=== PATIENT | female | born 1970 | race Caucasian/White ===

== ENCOUNTER 2020-09-15 13:26 | Outpatient (REF) | payer BC, SELFPAY ==
--- NOTE | 2020-09-15 13:31 | MM_ITS ---
EXAMINATION: MM DIAGNOSTIC DIGITAL BREAST TOMOSYNTHESIS, BILATERAL CLINICAL INFORMATION: Probable benign nodule central left breast. Due for yearly. No family history breast cancer. The lifetime risk of breast cancer based on the Tyrer-Cuzick Model is 11%. COMPARISON: Mammography: 09/11/2019, 03/09/2019, 09/06/2018 (BI-RADS 0). TECHNIQUE: Digital breast tomosynthesis is performed in both the craniocaudal and mediolateral oblique views along with computer-aided detection (CAD). Synthesized 2D images are generated from the tomosynthesis. FINDINGS: There are scattered areas of fibroglandular density (ACR BI-RADS breast composition Category b). There are no significant masses, abnormal calcifications, or other abnormalities. The nodule central left breast is decreased in size since 2018. Other nodularity inner left breast also decreased. There is no developing density. Scattered punctate calcifications inner left breast and anterior right breast are similar to prior studies. No significant changes. Results are provided to the patient at time of visit by the technologist. MM/MM tomosynthesis diagnostic BI IMPRESSION: 1. No mammographic evidence of malignancy. 2. Nodularity left breast decreased since 2018, now considered benign. ASSESSMENT: BI-RADS 2: Benign RECOMMENDATION: Routine annual mammography screening. This patient's information was entered into a reminder system with a target due date for their next mammogram.
== END 2020-09-15 13:27 | disposition home or self-care (01) ==
LOC: HO.MAMMO 13:26
PROVIDERS: PCP Internal Medicine; Visit Provider Internal Medicine
DX: R92.2 Inconclusive mammogram (principal)
CPT/HCPCS: 77062; 77066

== ENCOUNTER → 2021-01-28 13:37 | Outpatient (REF) | payer BC, SELFPAY ==
--- NOTE | 2021-01-28 14:00 | ECG_ITS ---
Hook-up date: 2021-01-28 13:59:00 Duration: 45:42:00 Test Indications: PREMATURE VENTRICULAR CONTRACTIO Medications: [id number] QRS complexes 2 Ventricular ectopics which represent <1 % of total QRS comp. 1 Supraventricular ectopics which represent <1 % of total QRS comp. * Paced QRS complexs which represent % of total QRS comp. VENTRICULAR ECTOPY 2 Isolated 0 Bigeminal Cycles 0 Couplets 0 Runs 0 Beats in Runs * Beats LONGEST at * BPM at :: -- * Beats FASTEST at * BPM at :: -- SUPRAVENTRICULAR ECTOPY 1 Isolated 0 Couplets 0 Runs 0 Beats in Runs * Beats LONGEST at * BPM at :: -- * Beats FASTEST at * BPM at :: -- HEART RATES 55 MIN at 03:18:13 2021-01-29 84 AVG 146 MAX at 14:04:35 2021-01-28 LONGEST RR 1.1040 secs at 03:18:10 2021-01-29 S-T LEVELS Channel 1 - 128 mm at 13:59:00 2021-01-28 - 128 mm at 13:59:00 2021-01-28 Channel 2 - 128 mm at 13:59:00 2021-01-28 - 128 mm at 13:59:00 2021-01-28 Channel 3 - 128 mm at 03:31:81 -- - 128 mm at 03:31:81 Underlying rhythm is sinus; Average ventricular rate 84/min; No significant ectopy, tachy or naina arrhythmias; Patient did not report any symptoms in the diary Referred By: Zabrina Munroe Overread By: ZABRINA MUNROE
== END ==
LOC: HO.CARD 13:37
PROVIDERS: Visit Provider Internal Medicine
DX: I49.3 Ventricular premature depolarization (principal)
CPT/HCPCS: 93225; 93226

== ENCOUNTER 2021-06-26 07:11 | Outpatient (REF) | payer BC, SELFPAY ==
[2021-06-26 07:47] LABS: MANUAL DIFF FLAG NO
[2021-06-26 07:51] LABS: Basophils Percent Auto 0.2 % (0-2); Eosinophils Absolute Auto 0.2 X10*3/uL (0.0-0.4); Eosinophils Percent Auto 2.7 % (0-4); Hematocrit 40.1 % (37-47); Hemoglobin 13.1 g/dl (12.0-16.0); Imm Gran Abs Auto 0.02 X10*3/uL (0.00-0.03); Imm Gran Pct Auto 0.2 % (0.0-0.4); Lymphocytes Percent Auto 36.1 % (20-40); Mean Corpuscular HGB Conc 32.7 g/dl (31.0-35.0); Mean Corpuscular Hemoglobin 28.4 pg (27.0-33.0); Mean Corpuscular Volume 86.8 fL (80-98); Mean Platelet Volume 9.3 fL (9.4-12.3); Monocytes Absolute Auto 0.7 X10*3/uL (0.1-1.2); Monocytes Percent Auto 7.8 % (2-11); Neutrophils Absolute Auto 4.4 X10*3/uL (2.0-8.3); Platelet Count 309 X10*3/uL (160-400); Red Blood Count 4.62 X10*6/uL (4.20-5.50); Red Cell Distribution Width 13.4 % (11.0-16.0); White Blood Count 8.3 X10*3/uL (4.8-10.8)
[2021-06-26 08:07] LABS: Anion Gap 10 (12-20); Blood Urea Nitrogen 10 mg/dL (9-16); Calcium 9.5 mg/dL (8.4-10.2); Carbon Dioxide 30 mmol/L (22-29); Chloride 104 mmol/L (96-108); Cholesterol 202 mg/dL; Estimated Glomerular Filt Rate > 60; Glucose Fasting 101 mg/dL (60-99); HDL Cholesterol 61 mg/dL; LDL Cholesterol Calculated 125 mg/dl; Potassium 4.4 mmol/L (3.3-5.1); Sodium 140 mmol/L (135-145); Triglycerides 82 mg/dL
[2021-06-26 08:29] LABS: TSH reflex Free T4 1.35 uIU/mL (0.32-4.0); Vitamin D 25-OH Total 52.3 ng/mL (>30)
== END 2021-06-26 07:12 | disposition home or self-care (01) ==
LOC: HO.LAB 07:11
PROVIDERS: PCP Internal Medicine; Visit Provider Internal Medicine
DX: Z00.01 Encounter for general adult medical examination with abnormal findings (principal); I10 Essential (primary) hypertension; K21.9 Gastro-esophageal reflux disease without esophagitis; R53.83 Other fatigue
CPT/HCPCS: 36415; 80048; 80061; 82306; 84443; 85025

== ENCOUNTER 2021-07-30 14:06 | Outpatient (REF) | payer BC, SELFPAY | END 2021-07-30 14:07 | disposition home or self-care (01) | LOC: HO.LNP 14:06 | PROVIDERS: Visit Provider Physician Assistant | DX: J32.9 Chronic sinusitis, unspecified (principal); Z20.822 Contact with and (suspected) exposure to COVID-19 | CPT/HCPCS: U0003; U0005 ==

== ENCOUNTER 2021-09-25 15:09 | Outpatient (REF) | payer BC, SELFPAY ==
--- NOTE | ~2021-09-25 | MM_ITS ---
EXAMINATION: MM SCREENING DIGITAL BREAST TOMOSYNTHESIS, BILATERAL CLINICAL INFORMATION: Screening. Asymptomatic. The lifetime risk of breast cancer based on the Tyrer-Cuzick Model is 12%. COMPARISON: Mammography: 09/15/2020, 09/11/2019, 03/09/2019, 09/06/2018, targeted left breast ultrasound 09/11/2018. TECHNIQUE: Digital breast tomosynthesis is performed in both the craniocaudal and mediolateral oblique views along with computer-aided detection (CAD). Synthesized 2D images are generated from the tomosynthesis. FINDINGS: There are scattered areas of fibroglandular density (ACR BI-RADS breast composition Category b). There are no significant masses, abnormal calcifications, or other abnormalities. Again, there is small smooth nodularity central left breast corresponding to cysts on targeted ultrasound. MM/MM tomosynthesis screening BI IMPRESSION: No mammographic evidence of malignancy. ASSESSMENT: BI-RADS 2: Benign RECOMMENDATION: Routine annual mammography screening. This patient's information was entered into a reminder system with a target due date for their next mammogram.
== END 2021-09-25 15:10 | disposition home or self-care (01) ==
LOC: HO.MAMMO 15:09
PROVIDERS: Visit Provider Internal Medicine
DX: Z12.31 Encounter for screening mammogram for malignant neoplasm of breast (principal)
CPT/HCPCS: 77063; 77067

== ENCOUNTER 2022-06-16 08:36 | Outpatient (REF) | payer BC, SELFPAY ==
[2022-06-16 12:23] LABS: Alanine Aminotransferase 10 U/L (0-31); Aspartate Amino Transferase 14 U/L (5-31); Cholesterol 227 mg/dL; Glucose Fasting 97 mg/dL (60-99); HDL Cholesterol 63 mg/dL; LDL Cholesterol Calculated 149 mg/dl; Triglycerides 77 mg/dL
[2022-06-16 12:24] LABS: Vitamin D 25-OH Total 45.4 ng/mL (>30)
== END 2022-06-16 08:37 | disposition home or self-care (01) ==
LOC: HO.HMGCLDS 08:36
PROVIDERS: PCP Internal Medicine; Visit Provider Internal Medicine
DX: Z00.00 Encounter for general adult medical examination without abnormal findings (principal)
CPT/HCPCS: 36415; 80061; 82306; 82947; 84450; 84460

== ENCOUNTER 2022-08-20 07:51 | Day surgery (SDC) | payer BC, SELFPAY ==
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
[2022-08-20 06:18] VITALS: BMI 26.9
[2022-08-20 08:21] VITALS: BP 127/72; PULSE 87; RESP 19; TEMP 37.1; O2SAT 99
[2022-08-20] MEDS: Lactated Ringers 1,000 ML 100 ML IVCONT (08:34)
--- NOTE | 2022-08-20 09:10 | P.HPSUR_ITS ---
Pre-Procedural Eval Section A Date of Service: 08/20/22 Section B Chief Complaint: screening Details of Present Illness: see H&P no changes Relevant Family History (Specify if Yes): No Relevant Social History: None Present Medications: see Short Stay Collaborative assessment Medical History: No relevant PMH History of Previous Operations: No relevant previous surgery Allergies: Allergies Allergy/AdvReac Type Severity Reaction Status Date / Time prochlorperazine Allergy Unknown neck Verified 06/16/22 08:15 spasms - Anaphylaxis Review of Systems Sugical H&P ROS: Negative: Constitution, Cardiovascular, Respiratory, Neuro logical, Psychiatric, Hem-Onc, Allergic/Immunologic, Gastrointestinal, Genitourinary, Musculoskeletal, Integumentary, Endocrine and Eyes/Ears/Nose/Throat Exam Surgical H&P Exam: Normal: HEENT, Normal: Heart, Normal: Lungs, Normal: Extremities, Normal: Abdomen, Normal: Skin and Normal: Neurological Plan Diagnosis/Plan: Unchanged I have reviewed the history and physical and performed a pertinent physical examination on my patient. No changes have occurred unless specified.
[2022-08-20 09:42] VITALS: BP 105/50; PULSE 78; RESP 16; TEMP 36.2; O2SAT 100
--- NOTE | 2022-08-20 09:45 | P.BOP_ITS ---
Brief Operative Note Date of Service: 08/20/22 Pre-op diagnosis: screening Post-op diagnosis: same Procedure: colonoscopy Surgeon: Kelvin Howell Anesthesia: MAC Was an [employer]st used for this Procedure?: No Estimated blood loss (mL): 0 Pathology: none sent Condition: stable Disposition: PACU
[2022-08-20 09:57] VITALS: BP 112/94; PULSE 72; RESP 16; TEMP 36.2; O2SAT 100
--- NOTE | 2022-08-21 05:39 | OP_ITS ---
SURGEON: Kelvin Howell MD INDICATIONS: Colon cancer screening. PREOPERATIVE DIAGNOSIS: POSTOPERATIVE DIAGNOSIS: PROCEDURE PERFORMED: Colonoscopy to the terminal ileum. ESTIMATED BLOOD LOSS: COMPLICATIONS: ANESTHESIA: ASSISTANTS: SPECIMENS: PROCEDURE DESCRIPTION: The procedure was performed on 08/20/2022. History and physical performed. The risks and benefits of the procedure were explained to the patient. Informed consent was obtained. The patient was placed in the left lateral decubitus position. A digital rectal exam was performed and was found to be normal. The Olympus pediatric video colonoscope was introduced into the rectum and advanced to the cecum without difficulty. The cecum was identified by transillumination, palpation, and identification of the ileocecal valve. Examination was performed. The scope was removed. She tolerated the procedure well and was taken to recovery area in stable condition. FINDINGS: The terminal ileum was normal. The visualized colonic mucosa was normal. The quality of the prep was good. No polyps were identified. Retroflexed examination showed small internal hemorrhoids. IMPRESSION: Normal screening colonoscopy. RECOMMENDATION: Repeat colonoscopy is recommended in 10 years for average risk individuals. MD HUSAM Randall/G[facility]MA / [id number]
== END 2022-08-20 10:25 | disposition home or self-care (01) ==
PROVIDERS: PCP Internal Medicine; Visit Provider Internal Medicine Gastroenterology
PROC: 0DJD8ZZ Inspection of Lower Intestinal Tract, Via Natural or Artificial Opening Endoscopic (ICD-10-PCS; CPT 45378; principal; 2022-08-20 09:00)
DX: Z12.11 Encounter for screening for malignant neoplasm of colon (principal); K64.8 Other hemorrhoids; K21.9 Gastro-esophageal reflux disease without esophagitis; K85.90 Acute pancreatitis without necrosis or infection, unspecified; J30.2 Other seasonal allergic rhinitis; Z79.51 Long term (current) use of inhaled steroids; Z79.1 Long term (current) use of non-steroidal anti-inflammatories (NSAID); Z79.899 Other long term (current) drug therapy; Z90.49 Acquired absence of other specified parts of digestive tract
CPT/HCPCS: 45378

== ENCOUNTER 2022-09-29 15:30 | Outpatient (REF) | payer BC, SELFPAY ==
--- NOTE | ~2022-09-29 | MM_ITS ---
EXAMINATION: MM SCREENING DIGITAL BREAST TOMOSYNTHESIS, BILATERAL CLINICAL INFORMATION: Screening. Asymptomatic. The lifetime risk of breast cancer based on the Tyrer-Cuzick Model is 12%. COMPARISON: Mammography: 09/25/2021, 09/15/2020, 09/11/2019, 09/06/2018; targeted left breast ultrasound 09/11/2018. TECHNIQUE: Digital breast tomosynthesis is performed in both the craniocaudal and mediolateral oblique views along with computer-aided detection (CAD). Synthesized 2D images are generated from the tomosynthesis. FINDINGS: There are scattered areas of fibroglandular density (ACR BI-RADS breast composition Category b). There are no significant masses, abnormal calcifications, or other abnormalities. Again, there are numerous bilateral regional punctate round calcifications anterior breasts. Scattered small nodularity central left breast corresponding to cysts on ultrasound is slightly decreased since 2018. The axilla and skin contours are unremarkable. MM/MM tomosynthesis screening BI IMPRESSION: No mammographic evidence of malignancy. ASSESSMENT: BI-RADS 2: Benign RECOMMENDATION: Routine annual mammography screening. This patient's information was entered into a reminder system with a target due date for their next mammogram.
== END 2022-09-29 15:31 | disposition home or self-care (01) ==
LOC: HO.MAMMO 15:30
PROVIDERS: PCP Internal Medicine; Visit Provider Internal Medicine
DX: Z12.31 Encounter for screening mammogram for malignant neoplasm of breast (principal)
CPT/HCPCS: 77063; 77067

== ENCOUNTER 2023-10-05 15:39 | Outpatient (REF) | payer BC, SELFPAY ==
--- NOTE | ~2023-10-05 | MM_ITS ---
EXAMINATION: MM SCREENING DIGITAL BREAST TOMOSYNTHESIS, BILATERAL CLINICAL INFORMATION: Screening. Asymptomatic. COMPARISON: Mammography: This study is compared with prior exams dating back to 2018. TECHNIQUE: Digital breast tomosynthesis is performed in both the craniocaudal and mediolateral oblique views along with computer-aided detection (CAD). Synthesized 2D images are generated from the tomosynthesis. FINDINGS: There are scattered areas of fibroglandular density (ACR BI-RADS breast composition Category b). There are no significant masses, abnormal calcifications, or other abnormalities. Bilateral, punctate, benign calcifications are present in each breast. MM/MM tomosynthesis screening BI IMPRESSION: No mammographic evidence of malignancy. ASSESSMENT: BI-RADS BI-RADS 2 - Benign Findings RECOMMENDATION: Routine annual mammography screening. 1 year F/U This examination should not preclude the clinical evaluation of a suspicious palpable abnormality. This patient's information was entered into a reminder system with a target due date for their next mammogram.
== END 2023-10-05 15:40 | disposition home or self-care (01) ==
LOC: HO.MAMMO 15:39
PROVIDERS: Visit Provider Internal Medicine
DX: Z12.31 Encounter for screening mammogram for malignant neoplasm of breast (principal)
CPT/HCPCS: 77063; 77067

== ENCOUNTER → 2023-10-05 15:45 | Outpatient (BNV) | payer BC, SELFPAY | PROVIDERS: Visit Provider Radiology Diagnostic Radiology | DX: Z12.31 Encounter for screening mammogram for malignant neoplasm of breast (principal) | CPT/HCPCS: 77063; 77067 ==

== ENCOUNTER 2023-12-22 11:00 | Outpatient (AMB) | payer BC, SELFPAY ==
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
[2023-12-22 11:47] VITALS: BP 128/88; PULSE 80; O2SAT 97; BMI 26.4
== END 2023-12-22 12:16 | disposition home or self-care (01) ==
PROVIDERS: PCP Internal Medicine; Visit Provider Internal Medicine
DX: Z00.00 Encounter for general adult medical examination without abnormal findings (principal); J01.00 Acute maxillary sinusitis, unspecified; F40.243 Fear of flying
CPT/HCPCS: 99396

== ENCOUNTER 2024-02-06 07:42 | Outpatient (REF) | payer BC, SELFPAY ==
[2024-02-06 10:32] LABS: MANUAL DIFF FLAG NO
[2024-02-06 10:40] LABS: Basophils Percent Auto 0.5 % (0-2); Eosinophils Absolute Auto 0.4 X10*3/uL (0.0-0.4); Hematocrit 44.2 % (37.0-47.0); Hemoglobin 14.2 g/dl (12.0-16.0); Imm Gran Abs Auto 0.02 X10*3/uL (0.00-0.03); Imm Gran Pct Auto 0.2 % (0.0-0.4); Lymphocytes Absolute Auto 3.1 X10*3/uL (1.2-4.9); Lymphocytes Percent Auto 36.9 % (20-40); Mean Corpuscular HGB Conc 32.1 g/dl (31.0-35.0); Mean Corpuscular Hemoglobin 28.7 pg (27.0-33.0); Mean Corpuscular Volume 89.3 fL (80.0-98.0); Mean Platelet Volume 10.1 fL (9.4-12.3); Monocytes Absolute Auto 0.6 X10*3/uL (0.1-1.2); Monocytes Percent Auto 7.3 % (2-11); Neutrophils Absolute Auto 4.2 x10*3/uL (2.0-8.3); Neutrophils Percent Auto 50.1 % (45-73); Platelet Count 301 X10*3/uL (160-400); Red Blood Count 4.95 X10*6/uL (4.20-5.50); Red Cell Distribution Width 13.7 % (11.0-16.0); White Blood Count 8.3 X10*3/uL (4.8-10.8)
[2024-02-06 11:15] LABS: Alanine Aminotransferase 11 U/L (0-31); Albumin Level 4.2 g/dL (3.5-5.0); Alkaline Phosphatase 48 U/L (39-117); Anion Gap 12 (12-20); Aspartate Amino Transferase 15 U/L (5-31); Bilirubin Total 0.3 mg/dL (0.0-1.0); Blood Urea Nitrogen 12 mg/dL (9-16); Calcium 9.2 mg/dL (8.4-10.2); Carbon Dioxide 26 mmol/L (22-29); Chloride 106 mmol/L (96-108); Cholesterol 224 mg/dL (<200); Estimated Glomerular Filt Rate > 60; Glucose Fasting 103 mg/dL (60-99); HDL Cholesterol 65 mg/dL (>40); LDL Cholesterol Calculated 145 mg/dL (<100); Potassium 4.1 mmol/L (3.3-5.1); Sodium 140 mmol/L (135-145); Total Protein 7.1 g/dL (6.5-8.0); Triglycerides 73 mg/dL (<150); Vitamin D 25-OH Total 56.8 ng/mL (>30)
== END 2024-02-06 07:43 | disposition home or self-care (01) ==
LOC: HO.HMGCLDS 07:42
PROVIDERS: PCP Internal Medicine; Visit Provider Internal Medicine
DX: Z00.01 Encounter for general adult medical examination with abnormal findings (principal); Z13.6 Encounter for screening for cardiovascular disorders; K21.9 Gastro-esophageal reflux disease without esophagitis; F40.243 Fear of flying; J01.00 Acute maxillary sinusitis, unspecified; Z78.0 Asymptomatic menopausal state
CPT/HCPCS: 36415; 80053; 80061; 82306; 85025

== ENCOUNTER 2024-03-01 07:40 | Outpatient (REF) | payer BC, SELFPAY ==
--- NOTE | ~2024-03-01 | CT_ITS ---
CT SINUS WITHOUT CONTRAST HISTORY: Sinonasal polyps, deviated nasal septum TECHNIQUE: CT images of the paranasal sinuses were acquired without contrast. This CT examination was performed using dose optimization techniques as appropriate, variously including the following: *Automated exposure control *Adjustment of mA and/or kV according to patient size (this includes techniques or standardized protocols for targeted exams where dose is matched to indication/reason for exam; i.e. extremities or head) *Use of iterative reconstruction technique DLP: 87 mGycm COMPARISON: None available FINDINGS: NASAL CAVITY: Minimal leftward nasal septal deviation. No significant mucosal disease. Focal effacement of the upper right nasal cavity from apposition of the right superior nasal turbinate again seen nasal septum. The olfactory fossa are symmetric. No evidence of Keros type III cribriform plate (lateral lamella 8-16 mm). FRONTAL SINUS: LEFT: Clear with patent frontal sinus drainage pathway. RIGHT: Clear with patent frontal sinus drainage pathway. MAXILLARY SINUS: LEFT: Mild mucosal disease in the alveolar recess and retention cyst versus polyp along the anterior sinus floor. patent osteomeatal unit. RIGHT: Several retention cyst in the alveolar recess with patent osteomeatal unit. ETHMOID AIR CELLS: LEFT: Trace mucosal disease. RIGHT: Trace mucosal disease. Lamina papyracea: Intact. Anterior ethmoid canals do not traverse through the ethmoid air cells. SPHENOID SINUS: LEFT: Clear with patent ostium and sphenoethmoidal recess. There is dilatation extends into the left optic strut. RIGHT: Clear with patent ostium and sphenoethmoidal recess. The sphenoid septum inserts onto the left distal cavernous carotid canal. Sphenoethmoidal ([place]) cell: None. OTHER: Prominent periapical lucency associated with the mesial buccal root of the left maxillary first molar which appears dehiscent into the floor of the left maxillary sinus. Normal appearance of the orbits. The carotid canals are covered by bone. The temporomandibular joints are normal. The mastoid air cells and middle ear cavities are well aerated. Limited evaluation of the intracranial structures without significant abnormalities. Hypertrophic degenerative changes across the anterior atlantodental interval. CT/CT sinus wo IV con IMPRESSION: 1. Minimal leftward nasal septal deviation. 2. Prominent periapical lucency associated with the mesial buccal root of the left maxillary first molar which appears dehiscent into the floor of the left maxillary sinus with overlying presumably odontogenic mild mucosal disease in the left maxillary sinus alveolar recess and retention cyst versus polyp along the anterior sinus floor. Several adjacent retention cysts versus polyps in the right maxillary sinus alveolar recess.
== END 2024-03-01 07:41 | disposition home or self-care (01) ==
LOC: HO.CT 07:40
PROVIDERS: Visit Provider Otolaryngology
DX: I33.0 Acute and subacute infective endocarditis (principal); J34.2 Deviated nasal septum
CPT/HCPCS: 70486

== ENCOUNTER 2024-10-10 15:37 | Outpatient (REF) | payer BC, SELFPAY ==
--- OUTSIDE RECORDS SUMMARY | 2024-10-10 16:09 | XMS_ITS | Patient Health Record ---
Author Organization [facility] Address [address] [place] [id number] Care Team Providers Care Wellness Assistant Name Role Phone Natacha BALLESTEROS, Spring Primary Care Provider Kelvin Taveras Jr Unavailable ALLERGIES Allergen (clinical drug ingredient) Drug/Non Drug Allergy documented on EMR Reaction Allergy Type Onset Date Status compazine (uncoded) Unknown Allergy Active REASON FOR REFERRAL No Information MEDICATIONS Medication SIG (Take, Route, Frequency, Duration) Notes Start Date End Date Status Fluticasone Propionate 50 MCG/ACT 1 spray in each nostril Nasally Once a day for 30 day(s) Active MiraLax (colon prep) 17 GM/SCOOP mixed with Gatorade or Crystal Light Orally begin at 5:00 p.m. the day before the procedure for 1 day 07/19/2022 Active ZyrTEC Allergy 10 MG 1 tablet Orally Onc e a day Active IMMUNIZATIONS Vaccine Route Administration Date Status Comme nts Influenza Unknown 09/23/2019 Administered Influenza Unknown 07/24/2020 Administered Influenza Unknown 09/15/2021 Administered SOCIAL HISTORY Sex Assigned At : Social History Observation Description Sex Assigned At Unknown PROBLEMS Problem Type ICD Code Onset Dates Problem Status W/U Status Risk SNOMED Code Notes Problem Colon cancer screening (Z12.11) Active confirmed 013379881 Problem Epigastric pain (R10.13) Active confirmed 33358946 Problem Gastroesophageal reflux disease without esophagitis (K21.9) Active confirmed 954761753 Problem Bilious vomiting without nausea (R11.14) Active confirmed 41152286 Problem Intestinal gas excretion (R14.3) Active confirmed 310307772 Problem Rectal itching (L29.0) Active confirmed 40231707 PLAN OF TREATMENT Pending Test Test Name Order Date LIVER PROFILE 10/14/2017 LIPASE 10/14/2017 CBC w/o DIFF 10/14/2017 Future Test Test Name Order Date COLONOSCOPY 04/13/2012 UPPER GI ENDOSCOPY 05/22/2014 UPPER GI ENDOSCOPY 12/02/2017 COLONOSCOPY 07/19/2022 Insurance Providers Payer Name Payer Address Payer Phone Subscriber Number Group Number Insured Name Patient Relationship to Insured Coverage Start Date [place]age End [place] [facility] [place] [employer] [address] [place] [address] [id number] GILBERTO URBINA Self - patient is the insured MEDICAL (GENERAL) HISTORY Medical History History ICD Code Pancreatitis, August 2011,? biliary sl udge Gastroesophageal reflux dise ase, EGD 07/07 no BE or HP, multiple fundic gland polyps. Seasonal allergic rhinitis Colonoscopy 04/2012, no polyps, ten-year followup Surgical History Surgery Date(Month/Year) Cholecystectomy Tonsillectomy Urethral dilation as a child
== END 2024-10-10 15:38 | disposition home or self-care (01) ==
LOC: HO.MAMMO 15:37
PROVIDERS: PCP Internal Medicine; Visit Provider Internal Medicine
DX: Z12.31 Encounter for screening mammogram for malignant neoplasm of breast (principal)
CPT/HCPCS: 77063; 77067

== ENCOUNTER → 2024-10-10 15:45 | Outpatient (BNV) | payer BC, SELFPAY | PROVIDERS: PCP Internal Medicine; Visit Provider Internal Medicine | DX: Z12.31 Encounter for screening mammogram for malignant neoplasm of breast (principal) | CPT/HCPCS: 77063; 77067 ==

== ENCOUNTER 2024-12-25 12:23 | Outpatient (AMB) | payer BC, SELFPAY ==
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
[2024-12-25 13:02] VITALS: BP 134/76; PULSE 80; RESP 16; TEMP 36.7; O2SAT 98; BMI 28.3
--- OUTSIDE RECORDS SUMMARY | 2024-12-25 15:26 | XMS_ITS | Patient Health Record ---
Author Organization [facility] Address [address] [place] [address] Care Team Providers Care Bulker Name Role Phone Curt Chavira MD Primary Care Provider Nolvia Valdez Unavailable [phone] Allergies Allergen (clinical drug ingredient) Drug/Non Drug Allergy documented on EMR Reaction Allergy Type Onset Date Status Compazine Unknown Drug Allergy Active Reason For Referral No Information Medications Medication SIG (Take, Route, Fr equency, Duration) Notes Start Date End Date Status Nasacort AQ 55 MCG/ACT 1 puff in each no stril Nasally Once a day Active Omeprazole 40 MG 1 capsule Orally Once a day Active ZyrTEC Active Problems Problem Type SNOMED Code ICD Code Onset Dates Problem Status W/U Status Risk Notes Problem Onychomycosis (529004327) Onychomycosis (110.1) Active confirmed Problem Verruca plantaris (00352426) Verruca Plantaris (078.19) Active confirmed Problem Disorder of sebaceous gland (0110393) Xerosis (706.8) Active confirmed Plan Of Treatment Pending Test Test Name Order Date [id number] Destruction, -09/16/2014 [id number] Destruction, 11-0610/28/2014 Insurance Providers Payer Name Payer Address Payer Phone Subscriber Number Group Number Insured Name Patient Relationship to Insured Coverage Start Date Coverage End Date [facility] [address] [place] [address] [phone] [id number] Darvin Christen Self - patient is the insured Medical (General) History Medical History History ICD Code chronic sinusitis Headaches Chicken pox Surgical History Surgery Date(Month/Year) Bladder 1970 Gallbladder 2008
--- OUTSIDE RECORDS SUMMARY | 2024-12-25 15:26 | XMS_ITS | Patient Health Record ---
Author Organization [facility] Address [address] [place] [address] Care Team Providers Care Director Of Patient Safety Name Role Phone Natacha BALLESTEROS, Spring Primary [...] Problem Colon cancer screening (Z12.11) Active confirmed 421529767 Problem Epigastric pain (R10.13) Active confirmed 57193738 Problem Gastroesophageal reflux disease without esophagitis (K21.9) Active confirmed 000431148 Problem Bilious vomiting without nausea (R11.14) Active confirmed 05341480 Problem Intestinal gas excretion (R14.3) Active confirmed 828490575 Problem Rectal itching (L29.0) Active confirmed 92705401 PLAN OF TREATMENT Pending Test Test Name Order Date LIVER PROFILE 10/14/2017 LIPASE 10/14/2017 CBC w/o DIFF 10/14/2017 Future Test Test Name Order Date COLONOSCOPY 04/13/2012 UPPER GI ENDOSCOPY 05/22/2014 UPPER GI ENDOSCOPY 12/02/2017 COLONOSCOPY 07/19/2022 Insurance Providers Payer Name Payer Address Payer Phone Subscriber Number Group Number Insured Name Patient Relationship to Insured Coverage Start Date Coverage End Date [facility] [employer] [address] [place] [address] [id number] GILBERTO URBINA Self - patient is [...]
== END 2024-12-25 13:33 | disposition home or self-care (01) ==
PROVIDERS: PCP Internal Medicine; Visit Provider Internal Medicine
DX: Z00.01 Encounter for general adult medical examination with abnormal findings (principal); F40.243 Fear of flying; Z71.89 Other specified counseling; E78.5 Hyperlipidemia, unspecified; R73.01 Impaired fasting glucose; Z00.00 Encounter for general adult medical examination without abnormal findings

== ENCOUNTER → 2024-12-25 12:23 | Outpatient (BNVA) | payer BC, SELFPAY | PROVIDERS: PCP Internal Medicine; Visit Provider Internal Medicine | DX: Z00.01 Encounter for general adult medical examination with abnormal findings (principal); F40.243 Fear of flying; E78.5 Hyperlipidemia, unspecified; R73.01 Impaired fasting glucose; Z71.89 Other specified counseling | CPT/HCPCS: 96127 ==

== ENCOUNTER 2025-01-22 08:01 | Outpatient (AMB) | payer BC, SELFPAY ==
[2025-01-22 08:04] VITALS: BP 112/80; PULSE 88; RESP 16; O2SAT 99; BMI 27.9
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
--- OUTSIDE RECORDS SUMMARY | 2025-01-22 08:09 | XMS_ITS | Patient Health Record ---
Author Organization [facility] Address [address] [place] [address] Care Team Providers Care Car And Yard Supervisor Name Role Phone Curt Chavira MD Primary Care Provider Nolvia Valdez Unavailable [phone] Allergies Allergen (clinical drug ingredient) Drug/Non Drug [...] Status W/U Status Risk Notes Problem Onychomycosis (987341960) Onychomycosis (110.1) Active confirmed Problem Verruca plantaris (42190174) Verruca Plantaris (078.19) Active confirmed Problem Disorder of sebaceous gland (8622140) Xerosis (706.8) Active confirmed Plan Of Treatment Pending Test Test Name Order Date [id number] Destruction, -10/28/2014 [id number] Destruction, 11-0609/16/2014 Insurance Providers Payer Name Payer Address Payer Phone Subscriber Number Group Number Insured Name Patient Relationship to Insured Coverage Start Date Coverage End Date [facility] [address] [place] [address] [phone] [id number] Darvin Christen Self - patient is the insured Medical (General) History Medical History History ICD Code chronic sinusitis Headaches Chicken pox Surgical History Surgery Date(Month/Year) Bladder 1970 Gallbladder 2008
--- OUTSIDE RECORDS SUMMARY | 2025-01-22 08:09 | XMS_ITS | Patient Health Record ---
Author Organization [facility] Address [address] [place] [address] Care Team Providers Care Cloth Examiner Hand Name Role Phone Natacha BALLESTEROS, [place] Primary Care Provider Kelvin Taveras Jr Unavailable Allergies Allergen (clinical drug ingredient) Drug/Non Drug Allergy documented on EMR Reaction Allergy Type Onset Date Status compazine (uncoded) Unknown Allergy Active Reason For Referral No Information Medications Medication SIG (Take, Route, Frequency, Duration) Notes [...] tablet Orally Onc e a day Active Immunizations Vaccine Route Administration Date Status Comme nts Influenza Unknown 09/23/2019 Administered Influenza Unknown 07/24/2020 Administered Influenza Unknown 09/15/2021 Administered Problems Problem Type SNOMED Code ICD Code Onset Dates Problem Status W/U Status Risk Notes Problem 749933794 Colon cancer screening (Z12.11) Active confirmed Problem 31082566 Epigastric pain (R10.13) Active confirmed Problem 879734394 Gastroesophageal reflux disease without esophagitis (K21.9) Active confirmed Problem 76966255 Bilious vomiting without nausea (R11.14) Active confirmed Problem 036528386 Intestinal gas excretion (R14.3) Active confirmed Problem 18201104 Rectal itching (L29.0) Active confirmed Plan Of Treatment Pending Test Test Name Order Date LIVER PROFILE 10/14/2017 LIPASE 10/14/2017 CBC w/o DIFF 10/14/2017 Future Test Test Name Order Date COLONOSCOPY 04/13/2012 UPPER GI ENDOSCOPY 05/22/2014 UPPER GI ENDOSCOPY 12/02/2017 COLONOSCOPY 07/19/2022 Insurance Providers Payer Name Payer Address Payer Phone Subscriber Number Group Number Insured Name Patient Relationship to Insured Coverage Start Date Coverage End Date [facility] [employer] PROFESSIONAL CLAIMS [address] [place] [address] [id number] 100 GILBERTO URBINA Self - patient is the insured Medical (General) History Medical History History ICD Code Pancreatitis, August 2011,? biliary sl udge Gastroesophageal reflux dise ase, EGD 07/07 no BE or HP, multiple fundic gland polyps. Seasonal allergic rhinitis Colonoscopy 04/2012, no polyps, ten-year followup Surgical History Surgery Date(Month/Year) Cholecystectomy Tonsillectomy Urethral dilation as a child
== END 2025-01-22 08:42 | disposition home or self-care (01) ==
PROVIDERS: PCP Internal Medicine; Visit Provider Physician Assistant
DX: K57.92 Diverticulitis of intestine, part unspecified, without perforation or abscess without bleeding (principal)

== ENCOUNTER → 2025-01-22 08:01 | Outpatient (BNVA) | payer BC, SELFPAY | PROVIDERS: PCP Internal Medicine; Visit Provider Physician Assistant ==

== ENCOUNTER 2025-01-25 08:27 | Outpatient (AMB) | payer BC, SELFPAY ==
--- OUTSIDE RECORDS SUMMARY | 2025-01-25 08:48 | XMS_ITS | Patient Health Record ---
Author Organization [facility] Address [address] [facility] [place] [address] Care Team Providers Care Product Development Director Name Role Phone Curt Chavira MD Primary Care Provider Nolvia Valdez Unavailable [phone] Allergies Allergen (clinical drug ingredient) Drug/Non Drug [...] Status W/U Status Risk Notes Problem Onychomycosis (259907035) Onychomycosis (110.1) Active confirmed Problem Verruca plantaris (72509895) Verruca Plantaris (078.19) Active confirmed Problem Disorder of sebaceous gland (1059303) Xerosis (706.8) Active confirmed Plan Of Treatment Pending Test Test Name Order Date [id number] Destruction, -09/16/2014 [id number] Destruction, 11-0610/28/2014 Insurance Providers Payer Name Payer Address Payer Phone Subscriber Number Group Number Insured Name Patient Relationship to Insured Coverage Start Date Coverage End Date [facility] [address] [place] [address] [phone] [id number] Darvin Christen Self - patient is the insured Medical (General) History Medical History History ICD Code chronic sinusitis Headaches Chicken pox Surgical History Surgery Date(Month/Year) Bladder 1970 Gallbladder 2008
--- OUTSIDE RECORDS SUMMARY | 2025-01-25 08:48 | XMS_ITS | Patient Health Record ---
Author Organization [facility] Address [address] [place] [address] Care Team Providers Care Black Belt Name Role Phone Natacha BALLESTEROS, Spring Primary [...] Problem Status W/U Status Risk Notes Problem 621390510 Colon cancer screening (Z12.11) Active confirmed Problem 82318590 Epigastric pain (R10.13) Active confirmed Problem 390920049 Gastroesophageal reflux disease without esophagitis (K21.9) Active confirmed Problem 22914957 Bilious vomiting without nausea (R11.14) Active confirmed Problem 129810728 Intestinal gas excretion (R14.3) Active confirmed Problem 91531689 Rectal itching (L29.0) Active confirmed Plan Of [...] Insured Coverage Start Date Coverage End Date [facility] [employer] PROFESSIONAL CLAIMS [address] [place] [address] [id number] 100 GILBERTO URBINA Self - patient is [...]
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
== END 2025-01-25 10:40 | disposition home or self-care (01) ==
LOC: HO.HMCC 08:27
PROVIDERS: PCP Internal Medicine; Visit Provider Internal Medicine
DX: R10.9 Unspecified abdominal pain (principal)

== ENCOUNTER 2025-01-28 07:37 | Outpatient (REF) | payer BC, SELFPAY ==
--- OUTSIDE RECORDS SUMMARY | 2025-01-28 07:39 | XMS_ITS | Patient Health Record ---
Author Organization [facility] Address [address] [place] [address] Care Team Providers Care Roller Name Role Phone Curt Chavira MD Primary Care Provider Nolvia Valdez Unavailable [phone] Allergies Allergen (clinical drug ingredient) Drug/Non Drug [...] Status W/U Status Risk Notes Problem Onychomycosis (387523900) Onychomycosis (110.1) Active confirmed Problem Verruca plantaris (45037931) Verruca Plantaris (078.19) Active confirmed Problem Disorder of sebaceous gland (6490593) Xerosis (706.8) Active confirmed Plan Of Treatment Pending Test Test Name Order Date [id number] Destruction, -09/16/2014 [id number] Destruction, 11-0610/28/2014 Insurance Providers Payer Name Payer Address Payer Phone Subscriber Number Group Number Insured Name Patient Relationship to Insured Coverage Start Date Coverage End Date [facility] [address] [place] [address] [phone] [id number] Darvin Christen Self - patient is the insured Medical (General) History Medical History History ICD Code chronic sinusitis Headaches Chicken pox Surgical History Surgery Date(Month/Year) Bladder 1970 Gallbladder 2008
--- OUTSIDE RECORDS SUMMARY | 2025-01-28 07:39 | XMS_ITS | Patient Health Record ---
Author Organization [facility] [place] [facility] Address [address] [place] [address] Care Team Providers Care Mixer Foam Rubber Name Role Phone Natacha BALLESTEROS, Spring Primary [...] Problem Status W/U Status Risk Notes Problem 835102096 Colon cancer screening (Z12.11) Active confirmed Problem 94990991 Epigastric pain (R10.13) Active confirmed Problem 896686616 Gastroesophageal reflux disease without esophagitis (K21.9) Active confirmed Problem 40616870 Bilious vomiting without nausea (R11.14) Active confirmed Problem 815536732 Intestinal gas excretion (R14.3) Active confirmed Problem 65346710 Rectal itching (L29.0) Active confirmed Plan Of [...] Insured Coverage Start Date Coverage End Date [facility] [employer] PROFESSIONAL CLAIMS [address] [place] [address] [id number] 100 GILBERTO URBINA Self - patient is [...]
[2025-01-28 10:30] LABS: MANUAL DIFF FLAG NO
[2025-01-28 10:50] LABS: Basophils Percent Auto 0.3 % (0-2); Eosinophils Absolute Auto 0.1 X10*3/uL (0.0-0.4); Hematocrit 40.5 % (37.0-47.0); Hemoglobin 13.5 g/dl (12.0-16.0); Imm Gran Abs Auto 0.01 X10*3/uL (0.00-0.03); Imm Gran Pct Auto 0.1 % (0.0-0.4); Lymphocytes Absolute Auto 2.5 X10*3/uL (1.2-4.9); Mean Corpuscular HGB Conc 33.3 g/dl (31.0-35.0); Mean Corpuscular Volume 87.1 fL (80.0-98.0); Mean Platelet Volume 9.9 fL (9.4-12.3); Monocytes Absolute Auto 0.5 X10*3/uL (0.1-1.2); Monocytes Percent Auto 7.8 % (2-11); Neutrophils Absolute Auto 3.7 x10*3/uL (2.0-8.3); Neutrophils Percent Auto 53.8 % (45-73); Platelet Count 274 X10*3/uL (160-400); Red Blood Count 4.65 X10*6/uL (4.20-5.50); Red Cell Distribution Width 13.4 % (11.0-16.0); White Blood Count 6.8 X10*3/uL (4.8-10.8)
[2025-01-28 11:15] LABS: Alanine Aminotransferase 14 U/L (0-31); Anion Gap 12 (12-20); Aspartate Amino Transferase 24 U/L (5-31); Blood Urea Nitrogen 16 mg/dL (9-16); Calcium 9.4 mg/dL (8.4-10.2); Carbon Dioxide 28 mmol/L (22-29); Chloride 106 mmol/L (96-108); Cholesterol 212 mg/dL (<200); Estimated Glomerular Filt Rate > 60; Glucose Fasting 90 mg/dL (60-99); HDL Cholesterol 57 mg/dL (>40); LDL Cholesterol Calculated 137 mg/dL (<100); Potassium 3.9 mmol/L (3.3-5.1); Sodium 142 mmol/L (135-145); Triglycerides 92 mg/dL (<150)
[2025-01-28 11:37] LABS: Vitamin D 25-OH Total 99.9 ng/mL (>30)
== END 2025-01-28 07:38 | disposition home or self-care (01) ==
LOC: HO.HMGCLDS 07:37
PROVIDERS: PCP Internal Medicine; Visit Provider Internal Medicine
DX: Z00.01 Encounter for general adult medical examination with abnormal findings (principal); E78.5 Hyperlipidemia, unspecified; R10.9 Unspecified abdominal pain; R73.01 Impaired fasting glucose
CPT/HCPCS: 36415; 80048; 80061; 82306; 84450; 84460; 85025

== ENCOUNTER 2025-01-28 10:48 | Outpatient (REF) | payer BC, SELFPAY ==
--- NOTE | ~2025-01-28 | US_ITS ---
CLINICAL HISTORY: R10.32 - Left lower quadrant pain US pelvis transvaginal Comparison: None Findings: Transvaginal scanning performed. Anteverted uterus is 7.1 cm length. Normal myometrium. No endometrial lesion, 5 mm thickness. Nabothian cysts are noted. Right ovary not identified Left ovary 1.4 x 1. x 1.5 cm. Normal color Doppler of both ovaries. There may be a small leiomyoma in the lower uterine segment measuring approximately 1.5 cm in greatest dimension. IMPRESSION: 1. No acute process. Possible small leiomyoma. This document has been electronically signed by: Salomón Palacios MD on 01/29/2025 07:06:06
== END 2025-01-28 10:49 | disposition home or self-care (01) ==
LOC: HO.US 10:48
PROVIDERS: Visit Provider Internal Medicine
DX: R10.32 Left lower quadrant pain (principal)
CPT/HCPCS: 76830; 76856

== ENCOUNTER → 2025-01-28 10:49 | Outpatient (BNV) | payer BC, SELFPAY | PROVIDERS: Visit Provider Radiology Diagnostic Radiology | DX: R10.32 Left lower quadrant pain (principal) | CPT/HCPCS: 76830 ==

== ENCOUNTER 2025-04-25 08:02 | Outpatient (AMB) | payer BC, SELFPAY ==
[2025-04-25 08:05] VITALS: BP 134/78; PULSE 83; TEMP 36.9; O2SAT 99; BMI 28.6
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
--- OUTSIDE RECORDS SUMMARY | 2025-04-25 08:06 | XMS_ITS | Patient Health Record ---
Author Organization [facility] Address [address] [place] [address] Care Team Providers Care Precision Crop Manager Name Role Phone Natacha BALLESTEROS, Spring Primary Care Provider Kelvin Taveras Jr Unavailable [phone] Allergies Allergen (clinical drug ingredient) Drug/Non Drug [...] Problem Status W/U Status Risk Notes Problem 543696509 Colon cancer screening (Z12.11) Active confirmed Problem 00704254 Epigastric pain (R10.13) Active confirmed Problem 415328916 Gastroesophageal reflux disease without esophagitis (K21.9) Active confirmed Problem 11914589 Bilious vomiting without nausea (R11.14) Active confirmed Problem 706359643 Intestinal gas excretion (R14.3) Active confirmed Problem 23372792 Rectal itching (L29.0) Active confirmed Plan Of [...] Insured Coverage Start Date Coverage End Date [facility] [employer] PROFESSIONAL CLAIMS [address] [place] [address] [id number] 100 GILBERTO URBINA Self - patient is [...]
--- OUTSIDE RECORDS SUMMARY | 2025-04-25 08:06 | XMS_ITS | Patient Health Record ---
Author Organization [facility] Address [address] [facility] [place] [address] Care Team Providers Care Spacecraft Systems Engineer Name Role Phone Curt Chavira MD Primary Care Provider Nolvia Valdez Unavailable [phone] Allergies Allergen (clinical drug ingredient) Drug/Non Drug [...] Status W/U Status Risk Notes Problem Onychomycosis (534791840) Onychomycosis (110.1) Active confirmed Problem Verruca plantaris (95558397) Verruca Plantaris (078.19) Active confirmed Problem Disorder of sebaceous gland (8343792) Xerosis (706.8) Active confirmed Plan Of Treatment Pending Test Test Name Order Date [id number] Destruction, -09/16/2014 [id number] Destruction, 11-0610/28/2014 Insurance Providers Payer Name Payer Address Payer Phone Subscriber Number Group Number Insured Name Patient Relationship to Insured Coverage Start Date Coverage End Date [facility] [address] [place] [address] [phone] [id number] Darvin Christen Self - patient is the insured Medical (General) History Medical History History ICD Code chronic sinusitis Headaches Chicken pox Surgical History Surgery Date(Month/Year) Bladder 1970 Gallbladder 2008
== END 2025-04-25 08:59 | disposition home or self-care (01) ==
PROVIDERS: PCP Internal Medicine; Visit Provider Physician Assistant Medical
DX: H92.01 Otalgia, right ear (principal); H61.21 Impacted cerumen, right ear

== ENCOUNTER → 2025-04-25 08:02 | Outpatient (BNVA) | payer BC, SELFPAY | PROVIDERS: PCP Internal Medicine; Visit Provider Physician Assistant Medical | DX: H92.01 Otalgia, right ear (principal) | CPT/HCPCS: 69209 ==

== ENCOUNTER 2025-08-26 08:01 | Outpatient (AMB) | payer BC, SELFPAY ==
[2025-08-26 08:04] VITALS: BP 130/70; PULSE 84; TEMP 36.7; O2SAT 99; BMI 28.7
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
--- OUTSIDE RECORDS SUMMARY | 2025-08-26 08:04 | XMS_ITS | Patient Health Record ---
Author Organization [facility] Address [address] [facility] [place] [address] Care Team Providers Care Rim Buster Name Role Phone Curt Chavira MD Primary Care Provider Nolvia Valdez Unavailable [phone] Allergies Allergen (clinical drug ingredient) Drug/Non Drug [...] Status W/U Status Risk Notes Problem Onychomycosis (700401826) Onychomycosis (110.1) Active confirmed Problem Verruca plantaris (96918665) Verruca Plantaris (078.19) Active confirmed Problem Disorder of sebaceous gland (2379713) Xerosis (706.8) Active confirmed Plan Of Treatment Pending Test Test Name Order Date [id number] Destruction, -09/16/2014 [id number]-Lanc Destruction, 11-0610/28/2014 Insurance Providers Payer Name Payer Address Payer Phone Subscriber Number Group Number Insured Name Patient Relationship to Insured Coverage Start Date Coverage End Date [facility] [address] [place] [address] [phone] [id number] Darvin Christen Self - patient is the insured Medical (General) History Medical History History ICD Code chronic sinusitis Headaches Chicken pox Surgical History Surgery Date(Month/Year) Bladder 1970 Gallbladder 2008
--- OUTSIDE RECORDS SUMMARY | 2025-08-26 08:04 | XMS_ITS | Patient Health Record ---
Author Organization [facility] Address [address] [place] [id number] Care Team Providers Care Blood Donor Unit Assistant Name Role Phone Natacha BALLESTEROS, [place] Primary Care Provider Kelvin Taveras Jr Unavailable [phone] Allergies Allergen (clinical drug ingredient) Drug/Non Drug Allergy documented on EMR Reaction Allergy Type Onset Date Status compazine (uncoded) Unknown Allergy Active Reason For Referral No Information Medications Medication SIG (Take, Route, Frequency, Duration) Notes Start Date End Date Status Fluticasone Propionate 50 MCG/ACT 1 spray in each nostril Nasally Once a day; Duration: 30 day(s) Active MiraLax (colon prep) 17 GM/SCOOP mixed with Gatorade or Crystal Light Orally begin at 5:00 p.m. the day before the procedure; Duration: 1 day 07/19/2022 Active ZyrTEC Allergy 10 MG 1 tablet Orally Onc e a day Active Immunizations Vaccine Route Administration Date Status Comme nts Influenza Unknown 09/23/2019 Administered Influenza Unknown 07/24/2020 Administered Influenza Unknown 09/15/2021 Administered Problems Problem Type SNOMED Code ICD Code Onset Dates Problem Status W/U Status Risk Notes Problem Colon cancer screening (668800484) Colon cancer screening (Z12.11) Active confirmed Problem Epigastric pain (13990923) Epigastric pain (R10.13) Active confirmed Problem Gastroesophageal reflux disease without esophagitis (882225139) Gastroesophageal reflux disease without esophagitis (K21.9) Active confirmed Problem Bilious vomiting (59488436) Bilious vomiting without nausea (R11.14) Active confirmed Problem Intestinal gas excretion (44008566) Intestinal gas excretion (R14.3) Active confirmed Problem Pruritus ani (50182201) Rectal itching (L29.0) Active confirmed Plan Of [...] Insured Coverage Start Date Coverage End Date [facility] [address] [place] [address] [id number] GILBERTO URBINA Self - patient is [...]
== END 2025-08-26 08:50 | disposition home or self-care (01) ==
PROVIDERS: PCP Internal Medicine; Visit Provider Nurse Practitioner Family
DX: J06.9 Acute upper respiratory infection, unspecified (principal)